=== PATIENT | female | born 1965 | race Caucasian/White ===

== ENCOUNTER 2018-08-28 18:21 | Emergency (ER) | payer OTHER ==
[2018-08-28 18:27] VITALS: BP 113/77; PULSE 98; RESP 18; TEMP 98.1
[2018-08-28] MEDS ORDERED: KETOROLAC 60 MG/2 ML VIAL IM STA (18:47)
--- NOTE | 2018-08-28 19:37 | CT ---
EXAMINATION TYPE: CT lumbar spine wo con DATE OF EXAM: 08/28/2018 7:23 PM COMPARISON: HISTORY: Pt c/o tense feeling and pain in LT side, running down leg. CT DLP: 547.2 mGycm Automated exposure control for dose reduction was used. Unenhanced CT of the lumbar spine was performed. Bone and soft tissue window settings are submitted as well as coronal and sagittal reconstructions. Lumbar vertebra have normal spacing and alignment. Posterior elements are intact. Facet joints are in tact. There is no compression fracture. There is no lumbar paraspinal mass. There are mild posterior disc herniations from L2 to S1. There is posterior left side lateral disc herniation at L3-4. There i s also posterior left-sided L5-S1 disc herniation. Sacroiliac joints are intact. I see no focal bone destruction. IMPRESSION: There is multilevel mild lumbar disc herniation. There is a lateral L3-4 disc herniation on the left side. There is posterior left-sided L5-S1 disc herniation. No fracture seen.
--- NOTE | 2018-08-28 19:50 | ED ---
General Adult HPI - General Chief complaint: Extremity Injury, Lower Stated complaint: Leg pain Time Seen by Provider: 08/28/18 18:28 Source: patient, RN notes reviewed, old records reviewed Mode of arrival: ambulatory Limitations: no limitations - History of Present Illness Initial comments: 53-year-old female patient past history of being 5 years postmenopausal presents to ED with lumbar back pain rating down her posterior left leg. Patient reportedly had a fall approximately one month ago which he fell and slipped on ice and landed on her gluteal region. Patient states that in the week since then she has noticed that she has some left paralumbar back pain that radiates down her left leg. Patient states that this is worse with exertion. Patient has taken Tylenol/ibuprofen with moderate success in treating this pain. Patient denies IV drug use, fever chills, saddle anesthesia , loss of bowel or bladder control, weakness or paresthesias in lower extremities. Patient denies any trauma to head or neck during fall. Patient has headaches, changes in vision. Patient denies other complaints. Patient is ambulatory without difficulty. Systemic: Pt denies fatigue, fever/chills, rash. Pt denies weakness, night sweats, weight loss. Neuro: Pt denies headache, visual disturbances, syncope or pre-syncope. HEENT: Pt denies ocular discharge or irritation, otalgia, rhinorrhea, pharyngitis or notable lymphadenopathy. Cardiopulmonary: Pt denies chest pain, SOB, heart palpitations, dyspnea on exertion. Abdominal/GI: Pt denies abdominal pain, n/v/d. : Pt denies dysuria, burning w/ urination, frequency/urgency. Denies new onset urinary or bowel incontinence. MSK: Pt denies loss of strength or function in extremities. Neuro: Pt denies new onset weakness, paresthesias. - Related Data Previous Rx's Medication Instructions Recorded Ibuprofen [Motrin] 600 mg PO Q6HR PRN #40 day 08/28/18 predniSONE 50 mg PO DAILY #5 tab 08/28/18 Allergies Allergy/AdvReac Type Severity Reaction Status Date / Time No Known Allergies Allergy Verified 08/28/18 18:27 Review of Systems ROS Statement: Those systems with pertinent positive or pertinent negative responses have been documented in the HPI. ROS Other: All systems not noted in ROS Statement are negative. Past Medical History Past Medical History: No Reported History History of Any Multi-Drug Resistant Organisms: None Reported Past Surgical History: Adenoidectomy, Tonsillectomy, Tubal Ligation Past Psychological History: Bipolar Smoking Status: Current some day smoker Past Alcohol Use History: Occasional Past Drug Use History: Marijuana General Exam - General Exam Comments Initial Comments: Constitutional: NAD, AOX3, Pt has pleasant affect. HEENT: NC/AT, trachea midline, neck supple, no lymphadenopathy. Posterior pharynx non erythematous, without exudates. External ears appear normal, without discharge. Mucous membranes moist. Eyes PERRLA, EOM intact. There is no scleral icterus. No pallor noted. Cardiopulmonary: RRR, no murmurs, rubs or gallops, no JVD noted. Lungs CTAB in anterior and posterior davis. No peripheral edema. Abdominal exam: Abdomen soft and non-distended. Abdomen non-tender to palpation in all 4 quadrants. Bowel sounds active in LLQ. No hepatosplenomegaly. No ecchymosis Neuro: CN II-XII grossly intact. No nuchal rigidity. MSK: No midline cervical, thoracic, or lumbar tenderness. No para cervical or thoracic tenderness. Mild amount of left paralumbar tenderness. Bilateral 5 strength psoas and quadriceps muscles bilaterally. Sensation intact. Reflexes +2 Achilles and patellar reflex. Left straight leg raise positive. Right straight leg raise negative. No posterior calf tenderness bilaterally, homans sign negative bilaterally. Posterior tibialis and radial pulse +2 bilaterally. Sensation intact in upper and lower extremities. Full active ROM in upper and lower extremities. Heel to toe walking intact. Limitations: no limitations Course Vital Signs 08/28/18 18:23 Temperature 98.1 F Pulse Rate 98 Respiratory 18 Rate Blood Pressure 113/77 O2 Sat by Pulse 99 Oximetry Medical Decision Making - Medical Decision Making 53-year-old female patient with no pertinent past medical history presents to ED with one month of back pain rating down her left lower leg. Patient denies loss of bowel or bladder control, saddle anesthesia, fevers chills, paresthesias , lower extremity weakness. Patient is ambulatory without difficulty. Patient vital signs stable. Physical exam revealed left paralumbar tenderness to palpation, left straight leg raise. Normal strength and sensation and reflexes pulses on lower extremities. CT of lumbar spine revealed multilevel lumbar disc herniation. There is lateral L3-L4 disc herniation left side. There is posterior left-sided L5-S1 disc herniation. No fracture seen. Findings were explained to patient at length. Patient verbalizes understanding. Patient pain improved significant with Toradol. Patient prescribed 5 days of prednisone , ibuprofen to use as needed for pain. Patient to follow up with orthopedic surgeon tomorrow for further evaluation. Patient to follow up with primary care provider tomorrow for continued evaluation. Case discussed in depth with Dr. Eden. Patient to return to ED if new signs or symptoms develop or conditions worsen anyway. Disposition Clinical Impression: Lumbar back pain with radiculopathy affecting left lower extremity Disposition: HOME SELF-CARE Condition: Stable Instructions (If sedation given, give patient instructions): Lumbar Disc Herniation (ED) Additional Instructions: Patient to adhere to previously discussed treatment plan and will take medication(s) as directed. Patient to follow up with PCP in 1-2 days. Patient to return to ED if symptoms do not improve. Prescriptions: Ibuprofen [Motrin] 600 mg PO Q6HR PRN #40 day PRN Reason: Pain predniSONE 50 mg PO DAILY #5 tab Is patient prescribed a controlled substance at d/c from ED?: No Referrals: None,Stated [Primary Care Provider] - 1-2 days Guy Moss MD [Medical Doctor] - 1-2 days Time of Disposition: 19:49
== END 2018-08-28 19:53 | disposition home or self-care (01) ==
LOC: EC 18:21
DX: M51.16 Intervertebral disc disorders with radiculopathy, lumbar region (principal); M51.27 Other intervertebral disc displacement, lumbosacral region; F17.200 Nicotine dependence, unspecified, uncomplicated; W00.0XXA Fall on same level due to ice and snow, initial encounter
CPT/HCPCS: 72131; 99284; 96372; J1885